=== PATIENT | male | born 1995 | race Caucasian/White ===

== ENCOUNTER 2024-10-20 10:53 | Outpatient (OUT) | payer OTHER, SELFPAY ==
[2024-10-20 11:37] LABS: Hematocrit 41.9 % (42.0-54.0); Hemoglobin 13.7 g/dL (14.0-18.0); Immature Granulocytes Abs Auto 0.00 10^3/uL (0.00-0.03); Immature Granulocytes Pct Auto 0.0 % (0.0-0.5); Lymphocytes Absolute Auto 1.9 10^3/uL (1.2-3.8); Mean Corpuscular HGB Conc 32.7 g/dL (29.9-35.2); Mean Corpuscular Hemoglobin 27.4 pg (25.9-34.0); Mean Corpuscular Volume 83.8 fL (80.0-94.0); Platelet Count 230 10^3/uL (150-450); Red Blood Count 5.00 10^6/uL (4.70-6.10); White Blood Count 4.6 10^3/uL (4.0-11.0)
[2024-10-20 11:45] LABS: INR 1.07; Partial Thromboplastin Time 30.8 sec (22.3-36.2); Prothrombin Time 11.3 sec (9.0-11.6)
== END 2024-10-20 10:54 | disposition home or self-care (01) ==
LOC: PST 10:53
PROVIDERS: Visit Provider Otolaryngology
DX: Z01.812 Encounter for preprocedural laboratory examination (principal); R04.0 Epistaxis
CPT/HCPCS: 85025; 85610; 85730

== ENCOUNTER 2024-10-26 08:28 | Day surgery (SDC) | payer OTHER, SELFPAY ==
[2024-10-20 11:19] VITALS: BP 102/68; PULSE 74; TEMP 36.3; O2SAT 98; BMI 23.6
[2024-10-26] VITALS (12 sets, daily range): BP systolic 111–120; BP diastolic 75–86; PULSE 67–97; TEMP 35.8–36.2; O2SAT 94–100
--- NOTE | 2024-10-26 | OP_ITS ---
OPERATION DATE: 10/26/2024 SURGEON: Daniella Porter M.D. PREOPERATIVE DIAGNOSIS: Recurrent epistaxis. POSTOPERATIVE DIAGNOSIS: Recurrent epistaxis. PROCEDURE: Nasal endoscopy and cautery on the left. ANESTHESIA: General endotracheal. COMPLICATIONS: None. FINDINGS: Prominent left anterior septum and floor of nose vein. INDICATIONS: This 29-year-old man presented with recurrent left sided epistaxis secondary to the above findings. PROCEDURE: Patient identified in the holding area and taken back to the OR, where he was placed in the supine position. After induction of general endotracheal anesthesia, the left nose was approached with the nasal endoscope. Under endoscopic guidance, the above noted vessel was cauterized. Afrin soaked pledgets were then placed in the left side of the nose and, after waiting adequate time for decongestion, the nose was examined from anterior to posterior and no other significant finding was identified. Antibiotic ointment was then placed over the cautery site, and the patient was awakened and taken to the recovery room in good condition. ANDREA
--- OUTSIDE RECORDS SUMMARY | 2024-10-26 08:31 | XMS_ITS | Encounter Summary ---
[facility] Organization [facility] Address [id number] [address] [place] [address] Care Team Providers Care Requirements Analyst Name Role Phone Mnadie Tapia Primary Care Provider + Encounter Details Date Type Department Care Team (Late st Contact Info) Description 12/31/2023 Telephone [facility] [address] [facility] [address] [place] [phone] Dariana Guerrero CMA Social History Tobacco Use Types Packs/Day Years Used Date Smoking Tobacco: Never Assessed Sex and Gender Information Value Date Recorded Sex Assigned at Not on file Legal Sex Male 10:34 AM EDT Gender Identity Not on file Sexual Orientation Not on file documented as of this encounter Miscellaneous Notes * Telephone Encounter - Dariana Guerrero CMA - 12/31/2023 10:39 AM EDT Pt called , he was referred to you by a friend and wanted to know if you would accept him as a pt? He stated he didn't have any major health issues just needed a provider * Telephone Encounter - IBRAHIMA Santana - 12/31/2023 10:39 AM EDT Yes I will accept all new patient's in January. * Telephone Encounter - Dariana Guerrero CMA - 12/31/2023 10:39 AM EDT Noted documented in this encounter Plan of Treatment Upcoming Encounters Date Type Department Care Team (Late st Contact Info) Description 05/04/2025 8:40 AM EST Office Visit [facility] - Family Medicine [address] [place] [address] Mandie Tapia, PSYCHIATRIC AIDE-WATER POLLUTION SCIENTIST [address] [place] [address] documented as of this encounter Visit Diagnoses Not on filedocumented in this encounter Care Teams Requirements Analyst Relationship Specialty Start Date End Date Mandie Tapia, PSYCHIATRIC AIDE-WATER POLLUTION SCIENTIST [address] [place] [address] PCP - General Family Medicine 02/24/24 documented as of this encounter
--- OUTSIDE RECORDS SUMMARY | 2024-10-26 08:31 | XMS_ITS | Encounter Summary ---
Author Organization [facility] Address [address] [place] [address] Care Team Providers Care Court Security Officer Name Role Phone Mandie Tapia MD Unavailable Encounter Details Date Type Department Care Team (Late st Contact Info) Description 10/20/2024 Clinisync Result Encounter [facility] External Department Unsolicited Daniella Porter MD [address] [place] [address] Social History Tobacco Use Types Packs/Day Years Used Date Smoking Tobacco: Never Smokeless Tobacco: Never Alcohol Use Standard Drinks/Week Comments Not Currently 0 (1 standard drink = 0.6 oz pur e alcohol) Sex and Gender Information Value Date Recorded Sex Assigned at Not on file Legal Sex Male 11:08 AM EST Gender Identity Not on file Sexual Orientation Not on file documented as of this encounter Plan of Treatment Not on file documented as of this encounter Procedures Procedure Name Priority Date/Time Associated Diagnosis Comments SRMCO[facility] PROTHROMBIN TIME INR W/O COUM Routine 10/20/2024 11:20 AM EDT [facility] APTT Routine 10/20/2024 11:20 AM EDT ALL CBC WITH AUTO DIFF Routine 10/20/2024 11:20 AM EDT documented in this encounter Results * [facility] APTT (10/20/2024 11:20 AM EDT) PARTIAL THROMBOPLASTIN TIME 30.8 22.3 - 36.2 sec [facility] 10/20/2024 11:2 0 AM EDT 10/20/2024 11:21 AM EDT Narrative [facility] - 10/20/2024 2:43 PM EDT Daniella BRUNER Final Result Performing Organization Address [facility] de Phone Number [place] * [facility] PROTHROMBIN TIME INR W/O COUM (10/20/2024 11:20 AM EDT) PROTHROMBIN TIME 11.3 9.0 - 11.6 sec TB TB INR 1.07 TB Comment: DESIRED INR: 2.0-3.0 CONDITIONS NOT LISTED BELOW 2.5-3.5 FOR PROSTHETIC HEART VALVE REPLACEMENT 2.5-3.5 RECURRENT THROMBOSIS 10/20/2024 11:2 0 AM EDT 10/20/2024 11:21 AM EDT Narrative [facility]NC - 10/20/2024 2:43 PM EDT Daniella BRUNER Final Result Performing Organization Address [facility] de Phone Number [place] * (ABNORMAL) ALL CBC WITH AUTO DIFF (10/20/2024 11:20 AM EDT) TBH WBC 4.6 4.0 - 11.0 10 3/uL TBH TB RBC 5.00 4.70 - 6.10 10 6/uL TBH TBH HGB 13.7(L) 14.0 - 18.0 g/dL TBH TB HCT 41.9(L) 42.0 - 54.0 % TB TB MCV 83.8 80.0 - 94.0 fL TBH TBH MCH 27.4 25.9 - 34.0 pg TBH TB MCHC 32.7 29.9 - 35.2 g/dL TBH TB RDW 13.2 11.0 - 15.0 % TBH TBH PLT 230 150 - 450 10 3/uL TBH TBH MPV 10.0 9.5 - 13.5 fL TBH NEUTROPHILS PERCENT AUTO 48.4 43.0 - 75.0 % TBH LYMPHOCYTES PERCENT AUTO 40.5 20.5 - 60.0 % TBH MONOCYTES PERCENT AUTO 7.6 1.7 - 12.0 % TBH TBH EO % 2.2 0.9 - 7.0 % TBH BASOPHILS PERCENT AUTO 1.3 0.2 - 2.0 % TBH IMMATURE GRANULOCYTES PCT AUTO 0.0 0.0 - 0.5 % TBH NEUTROPHILS ABSOLUTE AUTO 2.2 1.4 - 6.5 10 3/uL TBH LYMPHOCYTES ABSOLUTE AUTO 1.9 1.2 - 3.8 10 3/uL TBH MONOCYTES ABSOLUTE AUTO 0.4 0.3 - 0.8 10 3/uL TBH TBH EO # 0.1 0.0 - 0.7 10 3/uL TBH BASOPHILS ABSOLUTE AUTO 0.1 0.0 - 0.1 10 3/uL TBH IMMATURE GRANULOCYTES ABS AUTO 0.00 0.00 - 0.03 10 3/uL TBH 10/20/2024 11:2 0 AM EDT 10/20/2024 11:21 AM EDT Narrative [facility] - 10/20/2024 11:42 AM EDT Daniella Porter MD [facility] Final Result [place] documented in this encounter Visit Diagnoses Not on filedocumented in this encounter Care Teams Court Security Officer Relationship Specialty Start Date End Date Mandie Tapia MD [address] [place] [address] Referring Physician Family Medicine 10/10/24 documented as of this encounter
--- OUTSIDE RECORDS SUMMARY | 2024-10-26 08:31 | XMS_ITS | Encounter Summary ---
Author Organization [employer] [facility] Address [facility] [place] [id number] [address] [place] [address] Care Team Providers Care Snow Plow Operator Name Role Phone Mandie Tapia APRN-MAINFRAME PROGRAMMER Primary Care Provider + Encounter Details Date Type Department Care Team (Late st Contact Info) Description 04/27/2024 Telephone [facility] - Family Medicine [address] [place] [phone] Renay Melton CMA Social History Tobacco Use Types Packs/Day Years Used Date Smoking Tobacco: Never Smokeless Tobacco: Never Alcohol Use Standard Drinks/Week Comments Never 0 (1 standard drink = 0.6 oz pur e alcohol) Overall Financial Resource Strain (CARDIA) Answe r Date Recorded How hard is it for you to pa y for the very basics like food, housing, medical care, and heating? Not hard at all 02/22/2024 PHQ-2 Answer Date Recorded Total Score 0 04/27/2024 PRAPARE - Transportation Answer Date Re corded Lack of Transportation (Medical) Not on file 02/22/2024 In the past 12 months, has l ack of transportation kept you from meetings, work, or from getting things needed for daily living? No 02/22/2024 Housing Instability Answer Date Recorde d Are you worried or concerned that in the next two months you may not have stable housing that you own, rent or stay in as a part of a household? No 02/22/2024 Hunger Screening Answer Date Recorded Within the past 12 months we worried whether our food would run out before we got money to buy more. Never True 04/27/2024 Within the past 12 months th e food we bought just didn't last and we didn't have money to get more. Never True 04/27/2024 Sex and Gender Information Value Date Recorded Sex Assigned at Not on file Legal Sex Male 10:34 AM EDT Gender Identity Not on file Sexual Orientation Not on file documented as of this encounter Miscellaneous Notes * Telephone Encounter - Renay Melton CMA - 04/27/2024 11:49 AM EST Pt called and would like his lab work forwarded to Dr Porter, Fax number is [phone] * Telephone Encounter - IBRAHIMA Santana - 04/27/2024 11:49 AM EST Did he not have it drawn today? Dr. Porter does not need the labs that I saturnino today- he has his ownset of labs that the patient needs to obtain before surgery * Telephone Encounter - Renay Melton CMA - 04/27/2024 11:49 AM EST Yes he did have them drawn today, He just wanted you to know. The orders that you put in He wanted also sent to DR Porter. I will call lab * Telephone Encounter - Renay Melton CMA - 04/27/2024 11:49 AM EST I called lab. They will take care of this when he has them done documented in this encounter Plan of Treatment Upcoming Encounters Date Type Department Care Team (Late st Contact Info) Description 05/04/2025 8:40 AM EST Office Visit [facility] - Family Medicine [address] [place] [address] Mandie Tapia APRN-CNP [address] [place] [address] documented as of this encounter Visit Diagnoses Not on filedocumented in this encounter Additional Health Concerns Assessment Noted Time PHQ-9 Depression Total Score: 0 04/27/19 25 10:05 AM EST documented as of this encounter Care Teams Snow Plow Operator Relationship Specialty Start Date End Date Mandie Tapia APRN-MAINFRAME PROGRAMMER [address] [place] [address] PCP - General Family Medicine 02/24/24 documented as of this encounter
--- OUTSIDE RECORDS SUMMARY | 2024-10-26 08:31 | XMS_ITS | Clinical Summary ---
Author Organization [facility] Address [address], [address] [place] [address] Care Team Providers Care Borematic Machine Operator Name Role Phone Unavailable Primary Care Provider Unavailabl e Allergies No known active allergies Medications HYDROcodone-terry taminophen (NORCO) 5-325 MG per tablet Take 1 tablet by mouth every 6 hours as needed for Pain. Max Daily Amount: 4 tablets 02/09/2024 Active Active Problems Problem Noted Date Diagnosed Date Crushing injury of left middle finger 02/14/2024 Social History Tobacco Use Types Packs/Day Years Used Date Smoking Tobacco: Never Smokeless Tobacco: Never Tobacco Cessation:Counseling Given: Not Answered Alcohol Use Standard Drinks/Week Comments Not Currently 0 (1 standard drink = 0.6 oz pur e alcohol) Interpersonal Safety Domain Source: IP Abuse Scr eening Answer Date Recorded Physical abuse Denies 02/15/2024 Verbal abuse Denies 02/15/2024 Emotional abuse Denies 02/15/2024 Financial abuse Denies 02/15/2024 Sexual abuse Denies 02/15/2024 Sex and Gender Information Value Date Recorded Sex Assigned at Not on file Legal Sex Male 1:35 PM EDT Gender Identity Not on file Sexual Orientation Not on file Last Filed Vital Signs Vital Sign Reading Time Taken Comments Blood Pressure 146/97 03/22/2024 11:09 AM EST Pulse 88 03/22/2024 11:09 AM EST Temperature 36.3 C (97.4 F) 02/17/2024 1:22 PM EST Respiratory Rate 18 03/01/2024 10:18 AM EST Oxygen Saturation 100% 02/17/2024 2:45 PM EST Inhaled Oxygen Concentration - - Weight 76.2 kg (168 lb) 05/08/2024 8:12 AM EST Height 172.7 cm (5' 8 ) 05/08/2024 8:12 AM EST Body Mass Index 25.54 05/08/2024 8:12 AM EST Plan of Treatment Health Maintenance Due Date Last Done Comments Depression Screen 2009 Varicella vaccine (1 of 2 - 13+ 2-dose series) 2010 HIV screen 2012 Hepatitis C screen 09/18/2015 Hepatitis B vaccine (1 of 3 - 19+ 3-dose series) 2016 COVID-19 Vaccine (2023-2 5 season) 2023 Flu vaccine (#1) 11/10/2024 DTaP/Tdap/Td vaccine (2 - Td or Tdap) 02/08/2034 02/09/2024 HPV vaccine Aged Out No longer eligi ble based on patient's age to complete this topic Hepatitis A vaccine Aged Out No longe r eligible based on patient's age to complete this topic Hib vaccine Aged Out No longer eligi ble based on patient's age to complete this topic Meningococcal (ACWY) vaccine Aged Out No longer eligible based on patient's age to complete this topic Meningococcal B vaccine Aged Out No l onger eligible based on patient's age to complete this topic Pneumococcal 0-49 years Vaccine Aged Out No longer eligible based on patient's age to complete this topic Polio vaccine Aged Out No longer elig ible based on patient's age to complete this topic Insurance [facility] [employer] [address] [place] [address] [employer] [employer] [address] [place] [address] [employer]
--- OUTSIDE RECORDS SUMMARY | 2024-10-26 08:31 | XMS_ITS | Clinical Summary ---
Author Organization [facility] Address [address] [place] [address] Care Team Providers Care Operations Director Name Role Phone Mandie Tapia MD Unavailable Allergies No known active allergies Medications No known medications Active Problems Problem Noted Date Diagnosed Date Crushing injury of left middle finger 02/14/2024 Encounters Date Type Department Care Team Description 10/20/2024 Clinisync Result Encounter [facility] External Department Unsolicited Daniella Porter MD 10/10/2024 9:50 AM EDT Office Visit [facility] [address] [place] [phone] Daniella Porter MD Recurrent epistaxis (Primary Dx) 10/10/2024 Bamboo flowsheet [facility] [address] [facility] [address] [place] [phone] Daniella Porter MD 10/10/2024 Travel 10/06/2024 [facility]phone [facility] [address] [place] [address] Celia Ybarra MA Epistaxis (Nose Bleed) from Last 3 Months Family History Relation Name Status Comments Father Unknown Mother Social History Tobacco Use Types Packs/Day Years [...] Sign Reading Time Taken Comments Blood Pressure 118/74 10/10/2024 9:51 AM EDT Pulse 82 10/10/2024 9:51 AM EDT Temperature - - Respiratory Rate - - Oxygen Saturation - - Inhaled Oxygen Concentration - - Weight 71.7 kg (158 lb) 10/10/2024 9:51 AM EDT Height 172.7 cm (5' 8 ) 10/10/2024 9:51 AM EDT Body Mass Index 24.02 10/10/2024 9:51 AM EDT Plan of Treatment Not on file Procedures Procedure Name Priority Date/Time Associated Diagnosis Comments [facility] APTT Routine 10/20/2024 11:20 AM EDT SRMCOH PROTHROMBIN TIME INR W/O COUM Routine 10/20/2024 11:20 AM EDT ALL CBC WITH AUTO DIFF Routine 10/20/2024 11:20 AM EDT from Last 3 Months Results * SRM[facility] PROTHROMBIN TIME INR W/O COUM (10/20/2024 11:20 AM EDT) PROTHROMBIN TIME 11.3 9.0 - 11.6 sec TBH TBH INR 1.07 TBH Comment: DESIRED INR: 2.0-3.0 CONDITIONS NOT LISTED BELOW 2.5-3.5 FOR PROSTHETIC HEART VALVE REPLACEMENT 2.5-3.5 RECURRENT THROMBOSIS 10/20/2024 11:2 0 AM EDT 10/20/2024 11:21 AM EDT Narrative [facility]INISYNA[facility] - 10/20/2024 2:43 PM EDT Daniella BRUNER Final Result [facility] * [facility]CF APTT (10/20/2024 11:20 AM EDT) PARTIAL THROMBOPLASTIN TIME 30.8 22.3 - 36.2 sec TBH 10/20/2024 11:2 0 AM EDT 10/20/2024 11:21 AM EDT Narrative [facility] - 10/20/2024 2:43 PM EDT us Daniella Porter MD [facility] Final Result [facility] * (ABNORMAL) ALL CBC WITH AUTO DIFF (10/20/2024 11:20 AM EDT) [facility] TB WBC 4.6 4.0 - 11.0 10 3/uL TBH TBH RBC 5.00 4.70 - 6.10 10 6/uL TBH TBH HGB 13.7(L) 14.0 - 18.0 g/dL TBH TBH HCT 41.9(L) 42.0 - 54.0 % TBH TBH MCV 83.8 80.0 - 94.0 fL TBH TBH MCH 27.4 25.9 - 34.0 pg TBH TBH MCHC 32.7 29.9 - 35.2 g/dL TBH TBH RDW 13.2 11.0 - 15.0 % TBH [...] Narrative CLINISYNC - 10/20/2024 11:42 AM EDT us Daniella Porter MD [facility] Final Result [facility] from Last 3 Months Insurance [facility] Care Teams Operations Director Relationship Specialty Start Date End Date Mandie Tapia MD [address] [place] [address] Referring Physician Family Medicine 10/10/24
--- OUTSIDE RECORDS SUMMARY | 2024-10-26 08:31 | XMS_ITS | Clinical Summary ---
Author Organization [employer] Address [id number] [address] [place] [address] Care Team Providers Care Nail Artist Name Role Phone Mandie Tapia CARE TRANSITION COORDINATOR-FLAT SORTING MACHINE CLERK Primary Care Provider + Allergies No known active allergies Medications No known medications Active Problems Problem Noted Date Diagnosed Date Crushing injury of left middle finger 02/14/2024 Immunizations Immunization Administration Dates Next Due Tdap 02/09/2024 Family History Medical History Relation Name Comments No Known Problems Brother accident Mother Relation Name Status Comments Brother Alive Mother Social History Tobacco Use Types Packs/Day Years Used Date Smoking Tobacco: Never Smokeless Tobacco: Never Tobacco Cessation:Counseling Given: Not Answered Alcohol Use Standard Drinks/Week Comments Never 0 [...] Sign Reading Time Taken Comments Blood Pressure 100/60 04/27/2024 10:07 AM EST Pulse 104 04/27/2024 10:07 AM EST Temperature 36.5 C (97.7 F) 04/27/2024 10:07 AM EST Respiratory Rate 18 02/24/2024 9:54 AM EST Oxygen Saturation 98% 04/27/2024 10:07 AM EST Inhaled Oxygen Concentration - - Weight 75.6 kg (166 lb 9.6 oz) 04/27/2024 10:07 AM EST Height 172.7 cm (5' 8 ) 04/27/2024 10:07 AM EST Body Mass Index 25.33 04/27/2024 10:07 AM EST Plan of Treatment Upcoming Encounters Date Type Department Care Team (Late st Contact Info) Description 05/04/2025 8:40 AM EST Office Visit [facility] - Family Medicine [address] [place] [address] Mandie Tapia, CARE TRANSITION COORDINATOR-FLAT SORTING MACHINE CLERK [address] [place] [address] Health Maintenance Due Date Last Done Comments Adult BMI Follow Up Plan 09/18/2015 Adult BMI Screening 04/27/2025 04/27/2024 Depression Screening 04/27/2025 04/27/2024 Tobacco Screening 04/27/2025 04/27/2024 DTaP,Tdap and Td Vaccines (2 - Td or Tdap) 02/08/2034 02/09/2024 Influenza Vaccine Discontinued Medical Devices Not on file Insurance [facility] [employer] [facility] Care Teams Nail Artist Relationship Specialty Start Date End Date Mandie Tapia, IRMA-FLAT SORTING MACHINE CLERK [address] [place] [address] PCP - General Family Medicine 02/24/24
[2024-10-26] MEDS: BACITRACIN OINTMENT 28.4 GM TUBE 1 APPLIC TOPICAL (09:48)
[2024-10-26] MEDS: OXYMETAZOLINE HCL 0.05% NASAL SPRAY 30 SPRAY NS (09:49)
== END 2024-10-26 11:35 | disposition home or self-care (01) ==
LOC: SURGOUT 08:29
PROVIDERS: Visit Provider Otolaryngology
PROC: (CPT 160; principal; 2024-10-26 09:30)
DX: R04.0 Epistaxis (principal)
CPT/HCPCS: 31238; 36415; J1100; J2250; J2405; J2704; J3010